=== PATIENT | male | born 1960 | race Caucasian/White ===

== ENCOUNTER → 2018-04-03 21:06 | Outpatient (CLI) | payer MEDICAID, SELFPAY ==
[2018-04-03 21:30] LABS: ALB/GLOB Ratio 1.1 RATIO (0.9-2.4); AST(SGOT) 20 U/L (15-37); Alanine Aminotransfer ALT/SGPT 42 U/L (16-61); Alkaline Phosphatase 44 U/L (45-117); Anion Gap 8 (5-15); BUN 23 mg/dL (7-18); BUN/Creat Ratio 18.9 RATIO (10-20); Calcium,Total 9.4 mg/dL (8.5-10.1); Chloride 106 mmol/L (98-107); Creatinine, Serum 1.22 mg/dL (0.70-1.30); EST Glomerular Filtration Rate 65 mL/min (>60); Est Glom Filt Rate - Afr Amer 78 mL/min (>60); Globulin 3.5 g/dL (2.2-4.2); Glucose 127 mg/dL (74-106); Potassium 3.8 mmol/L (3.5-5.1); Protein, Total 7.5 g/dL (6.4-8.2); Sodium Level 142 mmol/L (136-145)
== END ==
PROVIDERS: Visit Provider Nurse Practitioner
DX: I50.9 Heart failure, unspecified (principal)
CPT/HCPCS: 80053

== ENCOUNTER 2021-07-05 01:07 | Emergency (ER) | payer MEDICAID, SELFPAY ==
[2021-07-05 01:07] VITALS: BP 140/76; PULSE 62; RESP 17; TEMP 36.1; O2SAT 95; BMI 33.3
--- NOTE | 2021-07-05 01:29 | RAD_ITS ---
STUDY: X-RAY CHEST REASON FOR EXAM: Male, 60 years old. chest pain TECHNIQUE: PA and lateral views of the chest. COMPARISON: None. FINDINGS: Patchy opacity within the right lower lobe concerning for pneumonia. Fullness of the right hilum which may indicate reactive lymphadenopathy. There is no demonstrated pleural abnormality. Normal size heart. Normal mediastinum and karuna. Normal visualized pulmonary arteries. Normal visualized aortic arch and descending thoracic aorta. Normal visualized thoracic spine. Normal visualized ribs, clavicles, and shoulders. There is no demonstrated abnormality of the visualized soft tissue structures of the upper abdomen. RAD/Chest PA and Lateral IMPRESSION: Right lower lobe pneumonia with possible mild right hilar lymphadenopathy. Clinical correlation recommended. Electronically Signed: Carline Vigil MD at 1:59 EST , Service support ,
--- NOTE | 2021-07-05 01:31 | EKG12_ITS ---
Test Reason : CP Blood Pressure : / mmHG Vent. Rate : 056 BPM Atrial Rate : 056 BPM P-R Int : 208 ms QRS Dur : 106 ms QT Int : 424 ms P-R-T Axes : 067 -73 123 degrees QTc Int : 409 ms Sinus bradycardia Left anterior fascicular block Anterior infarct , age undetermined Abnormal ECG Confirmed by KATERIN ANTONIO, MATT ([id number]), senior technical editor ADE MUNSON ([id number]) on 07/07/2021 1:00:37 PM Referred By: CRYSTAL Confirmed By:MATT CONKLIN MD
[2021-07-05 01:33] LABS: Absolute Lymphocyte Count 1.05 X10^3/uL (0.83-4.51); Absolute Neutrophil Count 4.1 X10^3/uL (2.0-7.7); Basophil# 0.04 X10^3/uL; Basophil% 0.7 % (0-1); Eosinophil# 0.21 X10^3/uL; Eosinophils% 3.5 % (0-5); Hematocrit 45.2 % (40-54); Lymphocyte # 1.05 X10^3/ul (0.83-4.51); Lymphocyte % 17.7 % (19-41); Mean Corpuscular Volume 87.3 fL (80-94); Mean Platelet Vol. 10.1 fl (6.2-12.0); Monocyte# 0.49 X10^3/uL; Monocyte% 8.2 % (0-10); NRBC Flagged by Analyzer 0 % (0-5); Neutrophil # 4.13 X10^3/uL (2.7-7.7); Neutrophil % 69.6 % (47-70); Platelet Count 161 K/mm3 (150-450); RBC Distribution Width CV 15.5 % (11.6-14.6); RBC Distribution Width SD 49.4 fl (35.1-43.9); Red Blood Count 5.18 M/mm3 (4.6-6.2); White Blood Count 5.9 K/mm3 (4.4-11.0)
[2021-07-05 01:57] LABS: AST(SGOT) 38 U/L (15-37); Alanine Aminotransfer ALT/SGPT 28 U/L (16-61); Albumin, Serum 3.4 g/dL (3.2-5.0); Alkaline Phosphatase 51 U/L (45-117); Anion Gap 4 (5-15); BUN 30 mg/dL (7-18); BUN/Creat Ratio 23.8 RATIO (10-20); Calcium,Total 9.4 mg/dL (8.5-10.1); Chloride 105 mmol/L (98-107); Creatinine, Serum 1.26 mg/dL (0.70-1.30); EST Glomerular Filtration Rate 62 mL/min (>60); Est Glom Filt Rate - Afr Amer 74 mL/min (>60); Estimated Creatinine Clearance 64.74 ml/min; Globulin 3.2 g/dL (2.2-4.2); Glucose 145 mg/dL (74-106); Lipase 56 U/L (73-393); Potassium 3.9 mmol/L (3.5-5.1); Protein, Total 6.6 g/dL (6.4-8.2); Sodium Level 141 mmol/L (136-145); Troponin-I HS 14 pg/mL (3.0-78.0)
--- NOTE | 2021-07-05 01:59 | EX.ED.DYSGE1 ---
HPI History of Present Illness Chief Complaint: Chest Pain Narrative Narrative: Patient is a 60-year-old male who states he was sleeping when he woke up with lower chest/upper abdominal pain. He states the pain was sharp in nature and did not radiate. He denies any nausea vomiting diaphoresis or shortness of breath associated with this. He states he does have a heart history and was concerned that he could be having a heart attack and therefore comes in for evaluation. [facility] Medical History Diabetes Folliculitis Hyperlipidemia Hypertension Myocardial infarct Home Medications escitalopram oxalate 20 mg tablet 20 mg PO DAILY 04/02/18 [History Last Taken Unknown] aspirin 81 mg tablet,delayed release 81 mg PO DAILY 04/03/18 [History Last Taken Unknown] carvedilol 25 mg tablet 25 mg PO BID 04/03/18 [History Last Taken Unknown] digoxin 250 mcg (0.25 mg) tablet 0.25 mg PO DAILY 04/03/18 [History Last Taken Unknown] fenofibrate nanocrystallized 145 mg tablet 145 mg PO DAILY 04/03/18 [History Last Taken Unknown] furosemide 20 mg tablet 20 mg PO DAILY tab 04/03/18 [History Last Taken Unknown] gabapentin 100 mg capsule 300 mg PO BID 04/03/18 [History Last Taken Unknown] glipizide 5 mg tablet 5 mg PO DAILY 04/03/18 [History Last Taken Unknown] levothyroxine 88 mcg tablet 88 mcg PO DAILY 04/03/18 [History Last Taken Unknown] lisinopril 40 mg tablet 40 mg PO DAILY 04/03/18 [History Last Taken Unknown] metformin 1,000 mg tablet 1,000 mg PO BID 04/03/18 [History Last Taken Unknown] simvastatin 80 mg tablet 80 mg PO QHS 04/03/18 [History Last Taken Unknown] tamsulosin 0.4 mg capsule 0.4 mg PO DAILY 04/03/18 [History Last Taken Unknown] potassium chloride 10 mEq tablet,extended release 10 meq PO DAILY #30 tab 04/10/18 [Rx Last Taken Unknown] doxycycline hyclate 100 mg PO BID 10 Days #20 cap 07/05/21 [Rx Last Taken Unknown] fluoxetine 20 mg PO DAILY 07/05/21 [History Last Taken Unknown] mirtazapine 15 mg PO QHS 07/05/21 [History Last Taken Unknown] multivitamin 1 tab PO DAILY 07/05/21 [History Last Taken Unknown] ropinirole 4 mg PO QHS 07/05/21 [History Last Taken Unknown] Allergy/AdvReac Type Severity Reaction Status Date / Time penicillin G Allergy Severe HIVES Verified 07/05/21 01:14 [From Bicillin C-R] penicillin G procaine Allergy Severe HIVES Verified 07/05/21 01:14 [From Bicillin C-R] Penicillins Allergy Unknown Verified 07/05/21 01:14 Social History (Updated 04/03/18 @ 20:10 by Geri Treadwell ASSISTANT PURCHASING MANAGER, ASSISTANT PURCHASING MANAGER-C) Smoking Status: Current every day smoker tobacco type: cigars alcohol intake: current substance use type: does not use ROS ROS ED Constitutional Constitutional ED: Denies chills or fever(s) ENT ENT ED: Denies sore throat Cardiovascular Cardiovascular: Reports chest pain Respiratory/Chest Respiratory/Chest: Reports cough and sputum; Denies dyspnea Gastrointestinal Gastrointestinal: Reports abdominal pain; Denies diarrhea, nausea or vomiting Genitourinary Genitourinary ED: Denies dysuria Musculoskeletal Musculoskeletal: Denies myalgias Integumentary Denies rash Neurologic Neurologic: Denies headache(s) Hematologic/Lymphatic Hematologic/Lymphatic: Denies easy bleeding or easy bruising EXAM Physical Exam Const Vital Signs: 07/05/21 01:07 07/05/21 01:10 Temperature 96.9 F L Temperature Source Oral Pulse Rate 62 Respiratory Rate 17 Respiratory Effort Normal Non-Labored Respiratory Pattern Normal Blood Pressure 140/76 H Blood Pressure Mean 97 Pulse Ox 95 Oxygen Delivery Method Room Air Positive well nourished and well developed General Appearance ED: well developed Eyes PERRL and EOMs intact bilaterally Neck supple Resp normal respiratory effort Resp Narrative: Breath sounds are diminished throughout with faint rhonchi in bilateral bases greatest on the right Cardio regular rate and regular rhythm Rate: other Other Details: Radial pulses are plus 2 out of 4 bilaterally are equal and symmetric GI non-distended GI Narrative: Reproducible pain in the midepigastric region without voluntary guarding or rigidity. No pulsatile mass. There is a umbilical hernia present as well that is reducible in nature Auscultation: normoactive bowel sounds Palpation: soft Extremity Extremity Narrative: +1 pitting edema to the bilateral lower extremities that is equal and symmetric consistent with history of congestive heart failure Neuro oriented x3 and CN's II-XII intact bilaterally Sensorium / Orientation: alert Motor Exam: strength 5/5 throughout Psych mental status grossly normal Skin no rashes or lesions noted MDM MDM MDM Narrative Medical decision making narrative: Patient presented to the ER with lower chest/upper abdominal pain. His symptoms were not classic cardiac in nature and he reported spontaneous resolution of them. However he does have multiple risk factors for CAD and therefore a basic cardiac work-up was obtained. EKG was technically sinus bradycardia and troponin was normal. We discussed obtaining a delta troponin the patient states he does not want to stay in the hospital to obtain that value. His chest x-ray did show right lower lobe pneumonia and patient does report he has had mild cough. He is not hypoxic however and does not have laboratory changes to suggest septicemia. We discussed obtaining a Covid swab but patient does not want that obtained as well. Therefore at this time with spontaneous resolution of his chest pain normal troponin and EKG I will place him on doxycycline and patient can be discharged. Lab Data Attestation: I reviewed the patient's lab results. Labs: Laboratory Results - last 24 hr 07/05/21 07/05/21 01:10 01:10 WBC 5.9 RBC 5.18 Hgb 14.0 Hct 45.2 MCV 87.3 MCH 27.0 MCHC 31.0 L RDW Std Deviation 49.4 H RDW Coeff of Margarita 15.5 H Plt Count 161 MPV 10.1 Immature Gran % (Auto) 0.300 Neut % (Auto) 69.6 Lymph % (Auto) 17.7 L Owen % (Auto) 8.2 Eos % (Auto) 3.5 Baso % (Auto) 0.7 Absolute Neuts (auto) 4.1 Absolute Lymphs (auto) 1.05 Nucleated RBC % 0 Sodium 141 Potassium 3.9 Chloride 105 Carbon Dioxide 32.0 Anion Gap 4 L BUN 30 H Creatinine 1.26 Estim Creat Clear Calc 64.74 Est GFR (MDRD) Af Amer 74 Est GFR (MDRD) Non-Af 62 BUN/Creatinine Ratio 23.8 H Glucose 145 H Calcium 9.4 Total Bilirubin 0.60 Direct Bilirubin 0.30 AST 38 H ALT 28 Alkaline Phosphatase 51 Troponin I High Sens 14 Total Protein 6.6 Albumin 3.4 Globulin 3.2 Lipase 56 L Radiography Diagnostic Testing: Clinical Impression(s) from Imaging Studies Chest X-Ray 07/05/21 01:29 IMPRESSION: Right lower lobe pneumonia with possible mild right hilar lymphadenopathy. Clinical correlation recommended. Electronically Signed: Carline Vigil MD at 1:59 EST , Service support , Discharge Plan Triage Chief Complaint: Chest Pain ED Provider: Benjamin Fung Dx/Rx/DC Orders Clinical Impression: Right lower lobe pneumonia Instructions: ED Chest Pain, Uncertain Cause, ED Pneumonia (Adult) Prescriptions: New doxycycline hyclate 100 mg capsule 100 mg PO BID 10 Days Qty: 20 RF: 0 No Action escitalopram oxalate [Lexapro] 20 mg tablet 20 mg PO DAILY RF: 0 furosemide 20 mg tablet 20 mg PO DAILY RF: 0 gabapentin 100 mg capsule 300 mg PO BID RF: 0 tamsulosin [Flomax] 0.4 mg capsule 0.4 mg PO DAILY RF: 0 fenofibrate nanocrystallized 145 mg tablet 145 mg PO DAILY RF: 0 aspirin [Adult Low Dose Aspirin] 81 mg tablet,delayed release (DR/EC) 81 mg PO DAILY RF: 0 glipizide 5 mg tablet 5 mg PO DAILY RF: 0 metformin 1,000 mg tablet 1,000 mg PO BID RF: 0 simvastatin 80 mg tablet 80 mg PO QHS RF: 0 levothyroxine 88 mcg tablet 88 mcg PO DAILY RF: 0 lisinopril 40 mg tablet 40 mg PO DAILY RF: 0 carvedilol 25 mg tablet 25 mg PO BID RF: 0 digoxin 250 mcg tablet 0.25 mg PO DAILY RF: 0 multivitamin Tablet 1 tab PO DAILY RF: 0 fluoxetine 20 mg Tablet 20 mg PO DAILY RF: 0 mirtazapine 15 mg Tablet,Disintegrating 15 mg PO QHS RF: 0 ropinirole 4 mg Tablet 4 mg PO QHS RF: 0 potassium chloride [Klor-Con 10] 10 mEq tablet extended release 10 meq PO DAILY Qty: 30 RF: 12 Primary Care Provider: Benedict Bonilla Referrals: Benedict Bonilla DO [Primary Care Provider] - Disposition Disposition: Home, Self Care
[2021-07-05] MEDS: Doxycycline 100 MG CAPSULE PO (02:40)
[2021-07-05 02:43] VITALS: BP 131/81; PULSE 54; RESP 23; O2SAT 98
== END 2021-07-05 02:43 | disposition home or self-care (01) ==
PROVIDERS: Emergency Provider Emergency Medicine; PCP Family Medicine
DX: J18.9 Pneumonia, unspecified organism (principal); I10 Essential (primary) hypertension; I25.2 Old myocardial infarction; E11.9 Type 2 diabetes mellitus without complications; E78.5 Hyperlipidemia, unspecified; F17.290 Nicotine dependence, other tobacco product, uncomplicated; Z79.82 Long term (current) use of aspirin; Z79.84 Long term (current) use of oral hypoglycemic drugs; Z79.899 Other long term (current) drug therapy
CPT/HCPCS: 71046; 80048; 80076; 83690; 84484; 85025; 93005; 99285; A4216

== ENCOUNTER 2022-10-23 16:21 | Emergency (ER) | payer MEDICAID, SELFPAY ==
[2022-10-23 16:23] VITALS: BP 178/119; PULSE 73; RESP 18; TEMP 36.1; O2SAT 98
--- NOTE | 2022-10-23 17:05 | RAD_ITS ---
INDICATION: back pain EXAMINATION/TECHNIQUE: X-RAY - XR Spine Lumbar 2 or 3 Views COMPARISON: None. FINDINGS: VERTEBRAE: Preserved vertebral body height. No fracture. 6 mm spondylolisthesis at L4-5. Preservation of the normal lumbar lordosis. DISCS: Degenerative disc space narrowing at L4-5 and L5-S1. INCLUDED ABDOMEN: Included bowel gas pattern is non-obstructive. RAD/Lumbar Spine 2 or 3 Views IMPRESSION: Degenerative disc disease lower lumbar spine with 6 mm spondylolisthesis at L4-5. Electronically Signed: Gaston Srivastava MD at 17:37 EDT ,
[2022-10-23] MEDS: Ketorolac 15 MG/ML Vial IV (17:21)
[2022-10-23] MEDS: Orphenadrine 60 MG/2 ML Ampul IM (17:24)
[2022-10-23] MEDS: HYDROcodone Bitartrate/Apap 5/325 Tablet PO (18:03)
--- NOTE | 2022-10-23 18:06 | ED.VIS.BACK ---
HPI History of Present Illness Chief Complaint: Back Narrative Narrative: 62-year-old male present with back pain has had for about 5 days. Patient states that today she is radiates to the right hip. He is able to ambulate but is having trouble standing up straight. No loss of bladder or bowel control. No saddle anesthesia/paresthesia. [facility] Medical History Diabetes Folliculitis Hyperlipidemia Hypertension Myocardial infarct Home Medications escitalopram oxalate 20 mg tablet (Lexapro) 20 mg PO DAILY 04/02/18 [History Last Taken Unknown] aspirin 81 mg tablet,delayed release (Adult Low Dose Aspirin) 81 mg PO DAILY 04/03/18 [History Last Taken Unknown] carvedilol 25 mg tablet 25 mg PO BID 04/03/18 [History Last Taken Unknown] digoxin 250 mcg (0.25 mg) tablet 0.25 mg PO DAILY 04/03/18 [History Last Taken Unknown] fenofibrate nanocrystallized 145 mg tablet 145 mg PO DAILY 04/03/18 [History Last Taken Unknown] furosemide 20 mg tablet 20 mg PO DAILY 04/03/18 [History Last Taken Unknown] gabapentin 100 mg capsule 300 mg PO BID 04/03/18 [History Last Taken Unknown] glipizide 5 mg tablet 5 mg PO DAILY 04/03/18 [History Last Taken Unknown] levothyroxine 88 mcg tablet 88 mcg PO DAILY 04/03/18 [History Last Taken Unknown] lisinopril 40 mg tablet 40 mg PO DAILY 04/03/18 [History Last Taken Unknown] metformin 1,000 mg tablet 1,000 mg PO BID 04/03/18 [History Last Taken Unknown] simvastatin 80 mg tablet 80 mg PO QHS 04/03/18 [History Last Taken Unknown] tamsulosin 0.4 mg capsule (Flomax) 0.4 mg PO DAILY 04/03/18 [History Last Taken Unknown] potassium chloride 10 mEq tablet,extended release (Klor-Con) 10 meq PO DAILY #30 tabs 04/10/18 [Rx Last Taken Unknown] doxycycline hyclate 100 mg capsule 100 mg PO BID 10 days #20 caps 07/05/21 [Rx Last Taken Unknown] fluoxetine 20 mg tablet 20 mg PO DAILY 07/05/21 [History Last Taken Unknown] mirtazapine 15 mg disintegrating tablet 15 mg PO QHS 07/05/21 [History Last Taken Unknown] multivitamin 1 tab PO DAILY 07/05/21 [History Last Taken Unknown] ropinirole 4 mg tablet 4 mg PO QHS 07/05/21 [History Last Taken Unknown] hydrocodone-acetaminophen 5-325mg 5mg-325mg 1 tab PO Q6H PRN pain 3 days #12 TABLETS 10/23/22 [Rx Last Taken Unknown] Allergy/AdvReac Type Severity Reaction Status Date / Time penicillin G Allergy Severe HIVES Verified 10/23/22 16:26 [From Bicillin C-R] penicillin G procaine Allergy Severe HIVES Verified 10/23/22 16:26 [From Bicillin C-R] Penicillins Allergy Unknown Verified 10/23/22 16:26 Social History Smoking Status: Current every day smoker tobacco type: cigars alcohol intake: current substance use type: does not use ROS ROS ED Constitutional Constitutional ED: Denies chills, fever(s) or sweats Eyes Eyes: Denies blurry vision or change in vision ENT ENT ED: Denies ear pain or sore throat Cardiovascular Cardiovascular: Denies chest pain, palpitations or racing heartbeat Respiratory/Chest Respiratory/Chest: Denies cough, dyspnea or sputum Gastrointestinal Gastrointestinal: Denies abdominal pain, constipation, diarrhea, nausea or vomiting Genitourinary Genitourinary ED: Denies dysuria, hematuria or urinary frequency Musculoskeletal Musculoskeletal: Reports back pain and other Details: Right hip pain ; Denies arthralgias Integumentary Denies abscess, Abrasions or rash Neurologic Neurologic: Denies headache(s), paresthesias or weakness Psychiatric Psychiatric: Denies anxiety, depression, suicidal ideation or suicidal thoughts Endocrine Endocrinology: Denies polydipsia or polyuria EXAM Physical Exam Const Vital Signs: 10/23/22 16:23 Temperature 97 F L Temperature Source Temporal Pulse Rate 73 Respiratory Rate 18 Blood Pressure 178/119 H Blood Pressure Mean 138 Pulse Ox 98 Oxygen Delivery Method Room Air Positive well nourished General Appearance ED: NAD HEENT Reports moist mucous membranes Eyes PERRL Resp normal respiratory effort Cardio regular rate and regular rhythm Back/Spine Back/Spine Narrative: Tenderness palpation right lumbar paraspinal musculature. No midline deformity or step-off. There is tenderness in the right hip as well. Patient standing on examination. Neuro oriented x3 Sensorium / Orientation: alert Psych mental status grossly normal Skin no rashes or lesions noted MDM MDM MDM Narrative Medical decision making narrative: Patient presenting with back pain. Initially he thinks he strained it but he fell today getting out of the bathtub. He landed on the right side. He has some muscular tenderness in the right lumbar paraspinal muscular region and in the right hip. He is ambulatory steadily needs a hip x-ray. I did obtain a lumbar spine x-ray on my interpretation there is some degenerative disc disease and a 6 mm spondylolisthesis at L4-L5. No fracture or subluxation. Radiology services agrees. Patient was given initial dose of Norflex and Toradol and states that it did help a little but he still having pain. I did again give him [place]. I explained to him he will need to follow-up with his PCP get physical therapy. Likely has lumbar strain and would be amenable to physical therapy. Patient given [place] for home. Return precautions discussed. Patient stable discharge Impression: 1. Lumbar strain 2. Mechanical fall Radiography Diagnostic Testing: Clinical Impression(s) from Imaging Studies Lumbar Spine X-Ray 10/23/22 17:05 IMPRESSION: Degenerative disc disease lower lumbar spine with 6 mm spondylolisthesis at L4-5. Electronically Signed: Gaston Srivastava MD at 17:37 EDT Reading Location ID and State: [facility] / [place] Tel , Service support , Discharge Plan Triage Chief Complaint: Back ED Provider: Zacarias Ramirez Dx/Rx/DC Orders Instructions: ED Back Spasm, No Trauma Prescriptions: New hydrocodone-acetaminophen 5-325 mg tablet 1 tab PO Q6H PRN (Reason: pain) 3 Days Qty: 12 0RF No Action escitalopram oxalate [Lexapro] 20 mg tablet 20 mg PO DAILY furosemide 20 mg tablet 20 mg PO DAILY gabapentin 100 mg capsule 300 mg PO BID tamsulosin [Flomax] 0.4 mg capsule 0.4 mg PO DAILY fenofibrate nanocrystallized 145 mg tablet 145 mg PO DAILY aspirin [Adult Low Dose Aspirin] 81 mg tablet,delayed release (DR/EC) 81 mg PO DAILY glipizide 5 mg tablet 5 mg PO DAILY metformin 1,000 mg tablet 1,000 mg PO BID simvastatin 80 mg tablet 80 mg PO QHS levothyroxine 88 mcg tablet 88 mcg PO DAILY lisinopril 40 mg tablet 40 mg PO DAILY carvedilol 25 mg tablet 25 mg PO BID digoxin 250 mcg tablet 0.25 mg PO DAILY Label Comments: take half every day multivitamin Tablet 1 tab PO DAILY fluoxetine 20 mg Tablet 20 mg PO DAILY mirtazapine 15 mg Tablet,Disintegrating 15 mg PO QHS ropinirole 4 mg Tablet 4 mg PO QHS doxycycline hyclate 100 mg capsule 100 mg PO BID 10 Days Qty: 20 0RF potassium chloride [Klor-Con 10] 10 mEq tablet extended release 10 meq PO DAILY Qty: 30 12RF Primary Care Provider: Benedict Bonilla Referrals: Job Forbes DO [Med Staff - Active Staff] - 3-5 Days Benedict Bonilla DO [Primary Care Provider] - Disposition Disposition: Home, Self Care
== END 2022-10-23 18:16 | disposition home or self-care (01) ==
PROVIDERS: Emergency Provider Student in an Organized Health Care Education/Training Program; PCP Family Medicine; Visit Provider Student in an Organized Health Care Education/Training Program
DX: S39.012A Strain of muscle, fascia and tendon of lower back, initial encounter (principal); E11.9 Type 2 diabetes mellitus without complications; W01.0XXA Fall on same level from slipping, tripping and stumbling without subsequent striking against object, initial encounter; Y93.E1 Activity, personal bathing and showering; Y99.8 Other external cause status; I10 Essential (primary) hypertension; I25.2 Old myocardial infarction; E78.5 Hyperlipidemia, unspecified; F17.290 Nicotine dependence, other tobacco product, uncomplicated; Z79.82 Long term (current) use of aspirin; Z79.84 Long term (current) use of oral hypoglycemic drugs; Z79.899 Other long term (current) drug therapy
CPT/HCPCS: 72100; 96372; 96374; 99284; A4216

== ENCOUNTER 2022-11-15 21:50 | Emergency (ER) | payer MEDICAID, SELFPAY ==
[2022-11-15] VITALS (7 sets, daily range): BP systolic 149–180; BP diastolic 9–94; PULSE 80–84; RESP 15–24; TEMP 36.1–36.6; O2SAT 91–96; BMI 34.4
--- NOTE | 2022-11-15 21:54 | CT_ITS ---
We are attempting to reach an attending provider to discuss findings. An addendum with communication details will be sent when the communication is complete. EXAM: CT HEAD WITHOUT INTRAVENOUS CONTRAST CLINICAL INDICATION: Neuro deficit, acute, stroke suspected TECHNIQUE: Multiple axial images were obtained of the head without intravenous contrast. CTDIvol = ( 44 ) mGy, DLP = ( 863 ) mGycm This CT exam was performed using one or more of the following dose reduction techniques: automated exposure control, adjustment of the mA and/or kV according to patient size, and/or use of iterative reconstruction technique. This report was created using [employer] technology. COMPARISON: None. FINDINGS: BRAIN AND EXTRA-AXIAL SPACES: Periventricular small vessel ischemic change. No midline shift or hydrocephalus. Diffuse parenchymal atrophy. Posterior fossa structures are unremarkable. Basal cisterns are patent. No acute intracranial hemorrhage, mass effect or edema. No evidence of acute cortical stroke. BONES/JOINTS: Unremarkable. No discrete lytic or blastic abnormalities. VASCULATURE: Atherosclerotic calcifications of the carotid siphons and vertebrobasilar arteries. SINUSES: Unremarkable as visualized. Clear. MASTOID AIR CELLS: Visualized sinuses and mastoid air cells are clear. ORBITS: Visualized globes, extraocular muscles, optic nerves and retrobulbar fat appear unremarkable. CT/STROKE Brain/Head without Cont IMPRESSION: 1. No evidence o satisfactory acromioclavicular reverse musical master anomalies plantar subcutaneous f acute intracranial pathology. 2. Diffuse involutional changes and chronic ischemic small vessel white matter disease. Stroke ASPECTS score 10. [employer] was utilized to assist in identifying pertinent positive findings. Electronically Signed: Benjamin Mendez MD at 22:07 EDT ,
--- NOTE | 2022-11-15 21:54 | EKG12_ITS ---
Test Reason : DYSRHYTHMIA Blood Pressure : / mmHG Vent. Rate : 085 BPM Atrial Rate : 085 BPM P-R Int : 178 ms QRS Dur : 104 ms QT Int : 354 ms P-R-T Axes : 050 -72 061 degrees QTc Int : 421 ms Sinus rhythm with Fusion complexes Left axis deviation Anterior infarct , age undetermined Abnormal ECG Confirmed by KAYLEIGH ANTONIO, YOLANDA ([id number]), continuity editor ADE MUNSON ([id number]) on 11/19/2022 11:45:41 AM Referred By: LILLIAM Confirmed By:MARGARET VICTOR MD
--- NOTE | 2022-11-15 21:55 | ED.VIS.STROK ---
HPI History of Present Illness Chief Complaint: Stroke Alert Narrative Narrative: 62-year-old male presenting with inability to speak he is able to gesture that he believes is about 2 hours ago since he last spoke. Last known well 1700. Denies history of stroke. Denies paresthesias. Denies inability use extremities. Denies any head trauma. [facility] Medical History Diabetes Folliculitis Hyperlipidemia Hypertension Myocardial infarct Home Medications escitalopram oxalate 20 mg tablet (Lexapro) 20 mg PO DAILY 04/02/18 [History Last Taken Unknown] aspirin 81 mg tablet,delayed release (Adult Low Dose Aspirin) 81 mg PO DAILY 04/03/18 [History Last Taken Unknown] carvedilol 25 mg tablet 25 mg PO BID 04/03/18 [History Last Taken Unknown] digoxin 250 mcg (0.25 mg) tablet 0.25 mg PO DAILY 04/03/18 [History Last Taken Unknown] fenofibrate nanocrystallized 145 mg tablet 145 mg PO DAILY 04/03/18 [History Last Taken Unknown] furosemide 20 mg tablet 20 mg PO DAILY 04/03/18 [History Last Taken Unknown] gabapentin 100 mg capsule 300 mg PO BID 04/03/18 [History Last Taken Unknown] glipizide 5 mg tablet 5 mg PO DAILY 04/03/18 [History Last Taken Unknown] levothyroxine 88 mcg tablet 88 mcg PO DAILY 04/03/18 [History Last Taken Unknown] lisinopril 40 mg tablet 40 mg PO DAILY 04/03/18 [History Last Taken Unknown] metformin 1,000 mg tablet 1,000 mg PO BID 04/03/18 [History Last Taken Unknown] simvastatin 80 mg tablet 80 mg PO QHS 04/03/18 [History Last Taken Unknown] tamsulosin 0.4 mg capsule (Flomax) 0.4 mg PO DAILY 04/03/18 [History Last Taken Unknown] potassium chloride 10 mEq tablet,extended release (Klor-Con) 10 meq PO DAILY #30 tabs 04/10/18 [Rx Last Taken Unknown] doxycycline hyclate 100 mg capsule 100 mg PO BID 10 days #20 caps 07/05/21 [Rx Last Taken Unknown] fluoxetine 20 mg tablet 20 mg PO DAILY 07/05/21 [History Last Taken Unknown] mirtazapine 15 mg disintegrating tablet 15 mg PO QHS 07/05/21 [History Last Taken Unknown] multivitamin 1 tab PO DAILY 07/05/21 [History Last Taken Unknown] ropinirole 4 mg tablet 4 mg PO QHS 07/05/21 [History Last Taken Unknown] hydrocodone-acetaminophen 5-325mg 5mg-325mg 1 tab PO Q6H PRN pain 3 days #12 TABLETS 10/23/22 [Rx Last Taken Unknown] Allergy/AdvReac Type Severity Reaction Status Date / Time penicillin G Allergy Severe HIVES Verified 10/23/22 16:26 [From Bicillin C-R] penicillin G procaine Allergy Severe HIVES Verified 10/23/22 16:26 [From Bicillin C-R] Penicillins Allergy Unknown Verified 10/23/22 16:26 Social History Smoking Status: Current every day smoker tobacco type: cigars alcohol intake: current substance use type: does not use ROS ROS ED Constitutional Constitutional ED: Denies chills or fever(s) Eyes Eyes: Denies change in vision or diplopia ENT ENT ED: Denies rhinorrhea or sore throat Cardiovascular Cardiovascular: Denies chest pain or palpitations Respiratory/Chest Respiratory/Chest: Denies cough or dyspnea Gastrointestinal Gastrointestinal: Denies abdominal pain, nausea or vomiting Genitourinary Genitourinary ED: Denies dysuria or hematuria Musculoskeletal Musculoskeletal: Denies arthralgias Neurologic Neurologic: Reports other; Denies headache(s) or paresthesias Psychiatric Psychiatric: Denies anxiety or depression EXAM Physical Exam Const Vital Signs: 11/15/22 21:51 11/15/22 21:54 11/15/22 21:54 Temperature 97.9 F 97.0 F L Temperature Source Temporal Temporal Pulse Rate 80 80 Respiratory Rate 15 15 Blood Pressure 180/9 H 180/90 H Blood Pressure Mean 66 120 Pulse Ox 96 94 94 Oxygen Delivery Method Room Air Room Air Room Air 11/15/22 22:24 11/15/22 22:30 11/15/22 23:00 Temperature Temperature Source Pulse Rate 80 83 80 Respiratory Rate 20 H 15 18 Blood Pressure 179/70 H 149/94 H 152/90 H Blood Pressure Mean 106 112 110 Pulse Ox 95 94 93 Oxygen Delivery Method Room Air Room Air Room Air 11/15/22 23:30 11/15/22 23:36 11/16/22 00:12 Temperature 97.1 F L Temperature Source Pulse Rate 84 81 98 Respiratory Rate 24 H 16 14 Blood Pressure 179/90 H 174/90 H 195/119 H Blood Pressure Mean 119 118 144 Pulse Ox 91 92 84 Oxygen Delivery Method Room Air Ambu-Bag 11/15/22 21:54 11/16/22 01:00 Temperature 97.0 F L Temperature Source Temporal Pulse Rate 80 107 H Respiratory Rate 15 22 H Blood Pressure 180/90 H 187/119 H Blood Pressure Mean 120 141 Pulse Ox 96 95 Oxygen Delivery Method Room Air Positive well nourished HEENT Reports dry mucous membranes atraumatic Mouth ED: Yes dry mucous membranes Mouth: dry mucous membranes Eyes PERRL and EOMs intact bilaterally Chest Wall inspection of chest normal and palpation of chest normal Resp normal respiratory effort and clear to auscultation bilaterally Auscultation: Negative for rales, rhonchi or wheezes Cardio Rate: regular rate Rhythm: regular rhythm GI normal to inspection, nondistended, normoactive bowel sounds Extremity normal to inspection General Extremety ED: Negative for deformity or edema General Extremity: Negative for deformity or edema Neuro CN's II-XII intact bilaterally and no sensory deficits noted Sensorium / Orientation: alert Speech: Negative for speech normal Motor Exam: strength 5/5 throughout NIHSS NIHSS Initial: 1a Level of Consciousness: 0 1b LOC Questions (Score 2 if aphasic/stupor): 2 1c LOC Commands (Only score 1st attempt): 1 2 Best Gaze (If aphasic, use reflexive mvmts.): 0 3 Visual: 0 4 Facial Palsy: 0 5 Motor Arm Right (UN = amputation/fusion): 0 5 Motor Arm Left: 0 6 Motor Leg Right: 0 6 Motor Leg Left: 0 7 Limb ataxia (Only + if out of proportion): 1 8 Sensory (Aphasia/stupor=0 or 1, coma=2): 0 9 Best Language: 2 10 Dysarthria (mute, coma=2, intubated=UN): 2 11 Extinction and Inattention (only scored if +): 0 Total Score: 8 MDM MDM MDM Narrative Medical decision making narrative: Patient presenting with expressive aphasia. Last known well was 5 PM. He is outside the tPA window. Stroke team was called from the field. Patient met at the door with EMS. NIH stroke scale score of 8. Patient taken to CT and had a CT of the brain which was negative. Blood work was obtained. CBC showed a normal white blood cell count of 7.5. Hemoglobin hematocrit are stable. Platelets were normal. PT/INR within normal limits. Creatinine 1.16. BUN 34. There is some prerenal azotemia. Electrolytes are normal. Troponin came back at 23. The CTA was initially read as negative for acute findings. Dr. Palacios called me and stated she saw a distal M1 segment which appeared to be occluded. She requested that I call back to radiology and confirm this. I did call the radiologist and he did state that he does see this at this point. I then had a call back to her neurologist to arrange transport. At this point the patient had become very agitated and was difficult to control in the bed. I told the neurologist that I was going to give him some Geodon to control him a little bit better. He had already been in physical restraints to hold him in the bed. Patient given Geodon and initially he was not controllable. His digoxin Level came back subtherapeutic. At this point I had called [facility] to medically transport him to [facility] given he has large vessel occlusion. Discussed with the family and appropriate paperwork was signed for transport. I was called to the room as the patient became even more altered. He had become hypoxic and bradycardic and had become blue. At this point I determined that I would intubate the patient. Patient was bagged for a few minutes but his oxygen was not increasing over 70s. At this point he was given rocuronium and etomidate. Patient was intubated with 7.5 ET tube 25 at the lips with good color change. Confirmed placement on chest x-ray on my interpretation. Patient does have bilateral pneumonia and it looks like on his chest x-ray. I do not have a preintubation x-ray. Is possible he could have aspirated. He was given Rocephin and clindamycin to cover for this. Patient is put on a propofol drip to keep him sedated. Discussed the case with [facility] on arrival. Patient transported in guarded condition. I did call back neurology to let them know that the patient was intubated and they are aware. Impression: 1. Acute M1 occlusion 2. Hypoxic respiratory failure 3. Bilateral pneumonia Lab Data Attestation: I reviewed the patient's lab results. Labs: Laboratory Results - last 24 hr 11/15/22 11/15/22 11/15/22 22:09 22:09 22:09 WBC 7.5 RBC 5.30 Hgb 14.3 Hct 46.5 MCV 87.7 MCH 27.0 MCHC 30.8 L RDW Std Deviation 53.1 H RDW Coeff of Margarita 16.8 H Plt Count 157 MPV 9.8 Immature Gran % (Auto) 0.700 Neut % (Auto) 75.1 H Lymph % (Auto) 13.7 L [place] % (Auto) 7.9 Eos % (Auto) 1.9 Baso % (Auto) 0.7 Absolute Neuts (auto) 5.7 Absolute Lymphs (auto) 1.03 Nucleated RBC % 0 PT 13.2 INR 1.0 APTT 28.8 Sodium 137 Potassium 3.8 Chloride 108 H Carbon Dioxide 25.0 Anion Gap 4 L BUN 34 H Creatinine 1.16 Estim Creat Clear Calc 68.52 Est GFR (MDRD) Af Amer 82 Est GFR (MDRD) Non-Af 67 BUN/Creatinine Ratio 29.3 H Glucose 175 H Calcium 9.0 Troponin I High Sens 23 Digoxin Ethyl Alcohol POC Glucose 11/15/22 11/15/22 11/16/22 22:09 22:09 00:26 WBC RBC Hgb Hct MCV MCH MCHC RDW Std Deviation RDW Coeff of Margarita Plt Count MPV Immature Gran % (Auto) Neut % (Auto) Lymph % (Auto) [place] % (Auto) Eos % (Auto) Baso % (Auto) Absolute Neuts (auto) Absolute Lymphs (auto) Nucleated RBC % PT INR APTT Sodium Potassium Chloride Carbon Dioxide Anion Gap BUN Creatinine Estim Creat Clear Calc Est GFR (MDRD) Af Amer Est GFR (MDRD) Non-Af BUN/Creatinine Ratio Glucose Calcium Troponin I High Sens Digoxin 0.38 L Ethyl Alcohol < 3.0 POC Glucose 231 H ABG Data ABG results: ABG 11/16/22 00:33 Specimen Type ART Sample Site L Radial pH 7.00 L* Bicarbonate Actual 29.7 H Total CO2 33 Base Excess -2 O2 Saturation 85 L O2 % 100 ABG pCO2 120.4 H* ABG pO2 79 Yovanny Test Positive O2 Delivery Device Bagging POC PEEP 10 Crit Call To/Read Back Yes Blood Gas Notified Whom Dr. Ramirez Radiography Diagnostic Testing: Clinical Impression(s) from Imaging Studies Brain CT 11/15/22 21:54 IMPRESSION: 1. No evidence o satisfactory acromioclavicular reverse musical master anomalies plantar subcutaneous f acute intracranial pathology. 2. Diffuse involutional changes and chronic ischemic small vessel white matter disease. Stroke ASPECTS score 10. AIDOC was utilized to assist in identifying pertinent positive findings. Electronically Signed: Benjamin Mendez MD at 22:07 EDT , ADDENDUM: 11/15/222221 IMPRESSION: 1. No evidence o satisfactory acromioclavicular reverse musical master anomalies plantar subcutaneous f acute intracranial pathology. 2. Diffuse involutional changes and chronic ischemic small vessel white matter disease. Stroke ASPECTS score 10. AIDOC was utilized to assist in identifying pertinent positive findings. N.B. : The above Results were Read Back by Benjamin Mendez MD to Zacarias Ramirez DO, and understanding confirmed on 11/15/2022 22:15:05 (ET). Electronically Signed: Benjamin Mendez MD at 22:07 EDT , ADDENDUM: 11/15/222222 IMPRESSION: undefined Head/Neck CTA 11/15/22 21:59 IMPRESSION: No significant stenosis, thrombosis, aneurysm or dissection. Electronically Signed: Benjamin Mendez MD at 22:35 EDT , ADDENDUM: 11/15/226 IMPRESSION: No significant stenosis, thrombosis, aneurysm or dissection. N.B. : The above Results were Read Back by Benjamin Mendez MD to Dr Zacarias Ramirez DO, and understanding confirmed on 11/15/2022 22:59:49 (ET). Electronically Signed: Benjamin Mendez MD at 22:35 EDT , ADDENDUM: 11/15/22 2308 IMPRESSION: undefined ADDENDUM: 11/15/22 2320 IMPRESSION: undefined Chest X-Ray 11/16/22 00:02 IMPRESSION: Bilateral multilobar airspace disease is concerning for pneumonia. Reactive bilateral hilar adenopathy suspected. Electronically Signed: Benjamin Mendez MD at 1:26 EDT , Critical Care Time Critical Care Time: Yes Critical care time (excluding procedures): 75-104 minutes (76), Discussing w/Patient &/or Family/Auto Adjudication Specialist, Discussing w/Consultants, Arranging Admission or Transfer and Performing Direct Patient Care at Bedside Discharge Plan Triage Chief Complaint: Stroke Alert ED Provider: Zacarias Ramirez Dx/Rx/DC Orders Prescriptions: No Action escitalopram oxalate [Lexapro] 20 mg tablet 20 mg PO DAILY furosemide 20 mg tablet 20 mg PO DAILY gabapentin 100 mg capsule 300 mg PO BID tamsulosin [Flomax] 0.4 mg capsule 0.4 mg PO DAILY fenofibrate nanocrystallized 145 mg tablet 145 mg PO DAILY aspirin [Adult Low Dose Aspirin] 81 mg tablet,delayed release (DR/EC) 81 mg PO DAILY glipizide 5 mg tablet 5 mg PO DAILY metformin 1,000 mg tablet 1,000 mg PO BID simvastatin 80 mg tablet 80 mg PO QHS levothyroxine 88 mcg tablet 88 mcg PO DAILY lisinopril 40 mg tablet 40 mg PO DAILY carvedilol 25 mg tablet 25 mg PO BID digoxin 250 mcg tablet 0.25 mg PO DAILY Label Comments: take half every day multivitamin Tablet 1 tab PO DAILY fluoxetine 20 mg Tablet 20 mg PO DAILY mirtazapine 15 mg Tablet,Disintegrating 15 mg PO QHS ropinirole 4 mg Tablet 4 mg PO QHS doxycycline hyclate 100 mg capsule 100 mg PO BID 10 Days Qty: 20 0RF hydrocodone-acetaminophen 5-325 mg tablet 1 tab PO Q6H PRN (Reason: pain) 3 Days Qty: 12 0RF potassium chloride [Klor-Con 10] 10 mEq tablet extended release 10 meq PO DAILY Qty: 30 12RF Primary Care Provider: Benedict Bonilla Referrals: Benedict Bonilla DO [Primary Care Provider] - Disposition Disposition: Acute Care Hospital Discharge Location: [facility] Discharge Date/Time: 11/16/22 01:00
--- NOTE | 2022-11-15 21:59 | CT_ITS ---
EXAM: CT ANGIOGRAPHY HEAD AND NECK WITH INTRAVENOUS CONTRAST CLINICAL INDICATION: Neuro deficit, acute, stroke suspected TECHNIQUE: [place]/head and neck CT angiography protocol performed with intravenous contrast. CTDIvol = ( 30.42 ) mGy, DLP = ( 4716.17 ) mGycm This CT exam was performed using one or more of the following dose reduction techniques: automated exposure control, adjustment of the mA and/or kV according to patient size, and/or use of iterative reconstruction technique. This report was created using [employer] report generation technology. MIP reconstructed images were created and reviewed. CONTRAST: 100 ML ISOVUE 370 COMPARISON: None. FINDINGS: HEAD: RIGHT ANTERIOR CEREBRAL ARTERY: Unremarkable. No significant stenosis at the visualized segments. Anterior communicating artery is present. No aneurysm. RIGHT MIDDLE CEREBRAL ARTERY: Unremarkable. No significant stenosis at the visualized segments. No aneurysm. RIGHT POSTERIOR CEREBRAL ARTERY: Unremarkable. No occlusion or significant stenosis. No aneurysm. RIGHT INTRACRANIAL INTERNAL CAROTID ARTERY: Unremarkable. No significant stenosis. No dissection or occlusion. RIGHT INTRACRANIAL VERTEBRAL ARTERY: Unremarkable. No significant stenosis. No dissection or occlusion. LEFT ANTERIOR CEREBRAL ARTERY: Unremarkable. No significant stenosis at the visualized segments. No aneurysm. LEFT MIDDLE CEREBRAL ARTERY: Unremarkable. No significant stenosis at the visualized segments. No aneurysm. LEFT POSTERIOR CEREBRAL ARTERY: Unremarkable. No occlusion or significant stenosis. No aneurysm. LEFT INTRACRANIAL INTERNAL CAROTID ARTERY: Unremarkable. No significant stenosis. No dissection or occlusion. LEFT INTRACRANIAL VERTEBRAL ARTERY: Unremarkable. No significant stenosis. No dissection or occlusion. BASILAR ARTERY: Unremarkable. No significant stenosis. No aneurysm. OTHER VASCULATURE: See below. BRAIN AND EXTRA-AXIAL SPACES: Diffuse parenchymal atrophy. Chronic ischemic small vessel white matter disease. No midline shift or hydrocephalus. NECK: RIGHT COMMON CAROTID ARTERY: Unremarkable. No significant stenosis. No dissection or occlusion. RIGHT EXTRACRANIAL INTERNAL CAROTID ARTERY: Scattered atherosclerotic calcifications of the carotid bulbs and internal carotid arteries with no significant luminal narrowing. RIGHT EXTERNAL CAROTID ARTERY: Unremarkable. No occlusion. RIGHT EXTRACRANIAL VERTEBRAL ARTERY: Unremarkable. No significant stenosis. No dissection or occlusion. LEFT COMMON CAROTID ARTERY: Unremarkable. No significant stenosis. No dissection or occlusion. LEFT EXTRACRANIAL INTERNAL CAROTID ARTERY: See above. LEFT EXTERNAL CAROTID ARTERY: Unremarkable. No occlusion. LEFT EXTRACRANIAL VERTEBRAL ARTERY: Unremarkable. No significant stenosis. No dissection or occlusion. BRACHIOCEPHALIC AND SUBCLAVIAN ARTERIES: Unremarkable as visualized. No occlusion or significant stenosis. LUNG APICES: Centrilobular and paraseptal emphysema. PLEURAL SPACE: Unremarkable. No significant effusion. No pneumothorax. HEAD and NECK: BONES/JOINTS: Multilevel spine degenerative changes. No discrete lytic or blastic abnormalities. SOFT TISSUES: Unremarkable. CAROTID STENOSIS REFERENCE USING NASCET CRITERIA: % ICA stenosis = (1 - narrowest ICA diameter/diameter of distal cervical ICA) x 100. Mild - <50% stenosis. Moderate - 50-69% stenosis. Severe - 70-94% stenosis. Near occlusion - 95-99% stenosis. Occluded - 100% stenosis. CT/STROKE CTA Head AND Neck W/Con IMPRESSION: No significant stenosis, thrombosis, aneurysm or dissection. Electronically Signed: Benjamin Mendez MD at 22:35 EDT ,
--- NOTE | 2022-11-15 22:06 | ED.RN ---
2154: CALLED [facility] TO REPORT STROKE ALERT. INFORMED THAT THEY WOULD CALL ME BACK D/T HIGH VOLUME.
[2022-11-15 22:17] LABS: Absolute Lymphocyte Count 1.03 X10^3/uL (0.83-4.51); Absolute Neutrophil Count 5.7 X10^3/uL (2.0-7.7); Basophil# 0.05 X10^3/uL; Basophil% 0.7 % (0-1); Eosinophil# 0.14 X10^3/uL; Eosinophils% 1.9 % (0-5); Hematocrit 46.5 % (40-54); Hemoglobin 14.3 g/dL (13.0-16.5); Lymphocyte # 1.03 X10^3/ul (0.83-4.51); Lymphocyte % 13.7 % (19-41); Mean Corp Hgb Conc 30.8 g/dL (32-36); Mean Corpuscular Volume 87.7 fL (80-94); Mean Platelet Vol. 9.8 fl (6.2-12.0); Monocyte# 0.59 X10^3/uL; Monocyte% 7.9 % (0-10); NRBC Flagged by Analyzer 0 % (0-5); Neutrophil # 5.65 X10^3/uL (2.7-7.7); Neutrophil % 75.1 % (47-70); Platelet Count 157 K/mm3 (150-450); RBC Distribution Width CV 16.8 % (11.6-14.6); RBC Distribution Width SD 53.1 fl (35.1-43.9); White Blood Count 7.5 K/mm3 (4.4-11.0)
[2022-11-15 22:25] LABS: Prothrombin Time (Protime)PT. 13.2 SECONDS (11.7-14.9)
[2022-11-15 22:26] LABS: Partial Thromboplast Time 28.8 Seconds (24.1-36.2)
[2022-11-15 22:44] LABS: Anion Gap 4 (5-15); BUN 34 mg/dL (7-18); BUN/Creat Ratio 29.3 RATIO (10-20); Chloride 108 mmol/L (98-107); Creatinine, Serum 1.16 mg/dL (0.70-1.30); EST Glomerular Filtration Rate 67 mL/min (>60); Est Glom Filt Rate - Afr Amer 82 mL/min (>60); Estimated Creatinine Clearance 68.52 ml/min; Glucose 175 mg/dL (74-106); Potassium 3.8 mmol/L (3.5-5.1); Sodium Level 137 mmol/L (136-145); Troponin-I HS 23 pg/mL (3.0-78.0)
--- NOTE | 2022-11-15 22:44 | ED.RN ---
2215: CALLED [facility] BACK TO INFORM THAT PATIENT IS BACK IN HIS ROOM FROM CT.
--- NOTE | 2022-11-15 22:55 | ED.RN ---
Pt trying to get out of bed, patient is removing all cardiac monitoring. Pt pushing staff, staff is unable to redirect patient. Multiple staff at bedside attempting to get him back into bed, patient keep trying to walk out of the room. Family remains at bedside trying to comfort patient.
[2022-11-15 22:59] LABS: Alcohol, Blood (Medical)-Serum < 3.0 mg/dL
[2022-11-15 23:06] LABS: Digoxin Level 0.38 ng/mL (0.80-2.00)
--- NOTE | 2022-11-15 23:15 | ED.RN ---
Patient restrained to bed using non-violent soft restraints. Pt continues to try to get legs out of bed, pulling that the side rails. Dr Ramirez aware.
[2022-11-15] MEDS: Aspirin 300 MG Suppository RC (23:20)
[2022-11-15] MEDS: 0.9% Normal Saline 1,000 ML 999 ML IV (23:25)
[2022-11-15] MEDS: Ziprasidone IM 20 MG/ML VIAL IM (23:34)
--- NOTE | 2022-11-15 23:44 | ED.RN ---
ON PRESENTATION TO ED PT WAS SITTING UP ON THE EMS COT, AWAKE, ABLE TO FOLLOW COMMAND. UNABLE TO SPEAK. ONCE RETURNED FROM CT AND PLACED IN ED ROOM #1, PT WAS VERY RESTLESS AND WOULD NOT SIT IN THE BED. VERY DIFFICULT TO ASSESS VITAL SIGNS AND OBTAIN NIH. SON & DAUGHTER AT BEDSIDE.
--- NOTE | 2022-11-15 23:49 | ED.RN ---
PT PERSISTENTLY RESTLESS AND AGITATED AND NOT WANTING TO REMAIN IN THE BED. [facility]OR [facility] AT BEDSIDE. PT PULLING OFF TELE LEADS AND UNABLE TO OBTAIN VS PT IS CONSTANTLY WANTING TO STAND AT THE BEDSIDE. FAMILY DID REPORT THAT PT HAS CHRONIC BACK PAIN AND RESTLESS LEGS. EMOTIONAL SUPPORT GIVEN
--- NOTE | 2022-11-15 23:52 | ED.RN ---
2315: BILAT SOFT WRIST RESTRAINTS APPLIED FOR PT SAFETY
--- NOTE | 2022-11-15 23:58 | ED.RN ---
Staff at bedside calling out for help, patient had went unresponsive and his face was turning blue and patient became bradycardic. Dr Ramirez called to bedside. Decision to intubate made.
--- NOTE | 2022-11-16 00:02 | RAD_ITS ---
EXAM: XR CHEST, 1 VIEW CLINICAL INDICATION: Neuro deficit, acute, stroke suspected TECHNIQUE: Frontal view of the chest. This report was created using [employer] report generation technology. COMPARISON: July 05, 2021 FINDINGS: LUNGS AND PLEURAL SPACES: Bilateral multilobar airspace disease is concerning for pneumonia in the appropriate setting. No pneumothorax. No effusion. HEART: Unremarkable. Cardiac silhouette not enlarged. MEDIASTINUM: Central airways and mediastinal contour are unremarkable. BONES/JOINTS: Unremarkable. SOFT TISSUES: Unremarkable. LYMPH NODES: Bilateral hilar reactive adenopathy. TUBES, LINES AND DEVICES: Transesophageal catheter identified with side port just above the level of the GE junction and tip at the proximal to midportion the stomach. ET tube identified with tip located 4.8 cm above the yee. RAD/Chest 1 View IMPRESSION: Bilateral multilobar airspace disease is concerning for pneumonia. Reactive bilateral hilar adenopathy suspected. Electronically Signed: Benjamin Mendez MD at 1:26 EDT ,
[2022-11-16] MEDS: Etomidate 20 MG/10 ML Vial IV (00:03)
[2022-11-16] MEDS: Rocuronium Bromide 50 MG/5 ML Vial 40 MG IV (00:04)
[2022-11-16 00:12] VITALS: BP 195/119; PULSE 98; RESP 14; O2SAT 84
[2022-11-16] MEDS: Propofol 10MG/Ml 1,000 MG/100 ML Bottle 6.7 MG CONT INF (00:24)
[2022-11-16] MEDS: Ceftriaxone 1 GM/50 ML BAG IV (00:37)
[2022-11-16] MEDS: Insulin Lispro 100 UNIT/ML INSULN.PEN 10 UNIT SC (00:37)
[2022-11-16] MEDS: Clindamycin 600 MG/50 ML BAG 100 MG IV (00:40)
[2022-11-16 00:41] LABS: Allen Test Positive; Base Excess -2 mmol/L (-2 to +2); Bicarbonate 29.7 mmol/L (22-26); Blood Gas Specimen Type ART; FI02 100; O2 Delivery Device Bagging; PEEP 10; PO2 79 mmHG (75-100); SITE L Radial; SO2 85 % (95-99); Total Carbon Dioxide 33 mmol/L; pCO2 120.4 mmHg (35-45)
[2022-11-16 00:45] LABS: Bedside Glucose 231 mg/dL (74-106)
[2022-11-16] MEDS: Rocuronium Bromide 50 MG/5 ML Vial IV (00:47)
[2022-11-16 01:00] VITALS: BP 187/119; PULSE 107; RESP 22; O2SAT 95
--- NOTE | 2022-11-16 01:06 | ED.RN ---
0004: pt was intubated by dr nelson. 7.5 ET @ 25 LIP.
--- NOTE | 2022-11-16 01:07 | ED.RN ---
0100: PT DEPARTED FOR [facility] VIA [facility] TEAM
--- NOTE | 2022-11-16 01:15 | ED.RN ---
4585: PT CONTINUED TO BE RESTLESS AND ATTEMPTING TO GET OUT OF BED. BILAT SOFT WRIST RESTRAINTS REMAINED ON. SON AT BEDSIDE. PT NOTED TO BE INCONTINENT OF URINE. CASE SEALER WENT TO GET BATHWIPES. PT THEN NOTED TO BE LESS RESPONSIVE AND TURNING PURPLE. +PULSE, BRADYCARDIC ON MONITOR. DR PERDOMO AND RT SUMMONED TO ROOM FOR INTUBATION
== END 2022-11-16 01:00 | disposition short-term general hospital (02) ==
PROVIDERS: Emergency Provider Student in an Organized Health Care Education/Training Program; PCP Family Medicine; Visit Provider Student in an Organized Health Care Education/Training Program
DX: J96.91 Respiratory failure, unspecified with hypoxia (principal); J18.9 Pneumonia, unspecified organism; R00.1 Bradycardia, unspecified; R47.01 Aphasia; F17.290 Nicotine dependence, other tobacco product, uncomplicated; I25.2 Old myocardial infarction
CPT/HCPCS: 31500; G0463; 36600; 70450; 70496; 70498; 71045; 80048; 80162; 82077; 82803; 82962; 84484; 85025; 85610; 85730; 93005; 96361; 96365; 96368; 96372; 99252; 99285; J7030; Q9967; A4216

== ENCOUNTER → 2023-10-15 | Outpatient (CLI) | payer MEDICARE, MEDICAID, SELFPAY ==
--- NOTE | 2023-10-15 10:35 | CDU_ITS ---
Reason For Study: Hx L MCA CVA Rt. Velocities/BP Lt. Velocities/BP Prox CCA 57.9/9.7 cm/sec. Prox CCA 54.7/7.8 cm/sec. Mid CCA 46.6/8.8 cm/sec. Mid CCA 43.3/9.2 cm/sec. Dist CCA 34.3/5.5 cm/sec. Dist CCA 27.7/6.0 cm/sec. Prox ICA 37.8/10.7 cm/sec. Prox ICA 40.9/10.4 cm/sec. Mid ICA 46.5/16.0 cm/sec. Mid ICA 30.4/8.6 cm/sec. Dist ICA 24.1/8.3 cm/sec. Dist ICA 29.2/7.2 cm/sec. Rt. ICA/CCA = 1.0. Lt. ICA/CCA = .9. Prox ECA 61.3/5.5 cm/sec. Prox ECA 61.0/6.9 cm/sec. Rt. Vert. 22.8/5.2 cm/sec. Lt. Vert. 19.6/5.0 cm/sec. Right Extracranial There is intimal thickening but no significant atherosclerotic plaque noted in the right common carotid artery. There is heterogeneous, irregular atherosclerotic plaque noted in the right internal carotid artery. There is intimal thickening but no significant atherosclerotic plaque noted in the right external carotid artery. Antegrade flow is noted in the right vertebral artery. Left Extracranial There is intimal thickening but no significant atherosclerotic plaque noted in the left common carotid artery. There is heterogeneous, irregular atherosclerotic plaque noted in the left internal carotid artery. There is intimal thickening but no significant atherosclerotic plaque noted in the left external carotid artery. Antegrade flow is noted in the left vertebral artery. Procedure Carotid Duplex [id number]. This is a Carotid Duplex examination using B-mode, color flow and specral Doppler. The exam was diagnostic. Exam performed in department. VL/Carotid Duplex Ultrasound Interpretation Summary Mild (<50%) stenosis right extracranial internal carotid. Mild (<50%) stenosis left extracranial internal carotid. Flow within the vertebral arteries is antegrade bilaterally. Ordering Physician: En Cho Referring Physician: En Cho Performed By: Yonatan Killian RVT and Student
== END | disposition home or self-care (01) ==
PROVIDERS: PCP Nurse Practitioner Family; Referring Provider Psychiatry & Neurology Neurology; Visit Provider Psychiatry & Neurology Neurology
DX: I63.9 Cerebral infarction, unspecified (principal); R47.01 Aphasia
CPT/HCPCS: 93880

== ENCOUNTER → 2023-11-01 | Outpatient (CLI) | payer MEDICARE, MEDICAID, SELFPAY | END | disposition home or self-care (01) | PROVIDERS: PCP Nurse Practitioner Family; Referring Provider Psychiatry & Neurology Neurology; Visit Provider Psychiatry & Neurology Neurology | DX: G40.909 Epilepsy, unspecified, not intractable, without status epilepticus (principal); I63.9 Cerebral infarction, unspecified | CPT/HCPCS: 95819 ==